=== PATIENT | male | born 1960 | race Caucasian/White ===

== ENCOUNTER → 2019-10-12 10:45 | Outpatient (BNVA) | payer BC, SELFPAY | PROVIDERS: Visit Provider Emergency Medicine | DX: M10.9 Gout, unspecified (principal); M10.072 Idiopathic gout, left ankle and foot | CPT/HCPCS: 80048; 84550 ==

== ENCOUNTER → 2020-07-05 10:07 | Outpatient (BNVA) | payer BC, SELFPAY | PROVIDERS: Visit Provider Emergency Medicine | DX: M10.072 Idiopathic gout, left ankle and foot (principal) | CPT/HCPCS: 73130; 84550 ==

== ENCOUNTER → 2020-08-03 15:16 | Outpatient (BNVA) | payer BC, SELFPAY | PROVIDERS: Visit Provider Emergency Medicine | DX: M10.041 Idiopathic gout, right hand (principal) | CPT/HCPCS: 73140; 84550 ==